=== PATIENT | female | born 1930 | race Caucasian/White ===

== ENCOUNTER → 2018-02-06 | Outpatient (CLI) | payer MEDICARE ==
--- NOTE | 2018-02-06 14:43 | KCIC ---
EXAM: Head CT without contrast. HISTORY: Dementia. TECHNIQUE: Computed tomographic images of the head were obtained without contrast. *One or more of the following individualized dose reduction techniques were utilized for this examination: 1. Automated exposure control. 2. Adjustment of the mA and/or kV according to patient size. 3. Use of iterative reconstruction technique. COMPARISON: 12/12/2017. FINDINGS: There is no acute or subacute extra-axial or intraparenchymal hemorrhage. There is no mass effect or midline shift. There is no hydrocephalus. There is cerebral atrophy with compensatory enlargement of the ventricles. There is extensive decreased attenuation throughout the cerebral white matter, likely due to chronic small vessel disease. 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 There are mastoidectomy changes. The orbits and paranasal sinuses are unremarkable. 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 There is a suspected small sebaceous cyst within the right scalp. IMPRESSION: 1. No acute intercranial finding. Note is made that MRI is more sensitive for acute infarction. 2. Decreased attenuation throughout the cerebral white matter, likely due to chronic small vessel disease. 3. Cerebral atrophy. Electronically signed by: Leena Cuevas MD (02/06/2018 2:39 PM) [id number]
== END | disposition home or self-care (01) ==
LOC: KCIC CT 13:36
PROVIDERS: ATTEND Family Medicine
DX: G31.9 Degenerative disease of nervous system, unspecified (principal); R90.82 White matter disease, unspecified
CPT/HCPCS: 70450